=== PATIENT | female | born 1955 | race Caucasian/White ===

== ENCOUNTER 2023-03-29 12:41 | Outpatient (CLI) | payer MEDICARE, SELFPAY ==
--- NOTE | ~2023-03-29 | MR_ITS ---
EXAMINATION: MR knee LT wo con DATE: 03/29/2023 13:29 INDICATION: Unilateral primary osteoarthritis of the left knee TECHNIQUE: Magnetic resonance imaging (MRI) of the left knee was performed without intravenous contra st. Sequences included coronal PD-weighted FSE, coronal PD-weighted FS FSE, sagittal T2-weighted FSE , sagittal PD-weighted FS FSE and axial PD weighted fat saturated FSE. COMPARISON: None. FINDINGS: Medial compartment: There is increased intrasubstance signal at the posterior horn of the medial meniscus which does not unambiguously contact the articular surface to meet strict criteria for meniscal tear nor most likely related to mild mucoid degeneration. There is partial-thickness chondral ulceration with chondral oliavs rface regularity along the anterior to central weightbearing medial femoral condyle and along the med ial tibial plateau. At the former is most prominent at the lateral aspect of the central weightbearin g medial femoral condyle where it involves greater than 50% the cartilage thickness but without degen erative subchondral changes. There is underlying subarticular edema-like signal change along the medi al margin of the medial tibial plateau. Lateral compartment: Lateral meniscus is normal. Partial-thickness chondral fissuring without degenerative subchondral orquidea nges at the central aspect of the lateral tibial plateau. Patellofemoral compartment: Focal deep chondral ulceration involving greater than 50% the cartilage thickness at the central aspe ct of the medial trochlea. Additional chondral ulceration with underlying small central subchondral o steophyte along the inferior margin of the medial trochlea. Ligaments and tendons: Anterior and posterior cruciate ligaments are normal. The medial collateral ligament and fibular tonia ateral ligament complex are normal. Mild tendinopathy and small enthesophytes at the patellar inserti on of the distal quadriceps tendon. Small transverse bands of magic angle artifact extending across t he otherwise normal patellar tendon. The visualized medial and lateral hamstring tendons as well as t he iliotibial band are normal. Fluid: Small left knee joint effusion. Small to moderate-sized Mcwilliams's cyst. No loose osteochondral bodies i dentified. Osseous/other: Couple small low signal intensity bone islands at the posterior aspect of both medial and lateral fem oral condyles. No fracture or pathologic marrow replacing process. IMPRESSION: 1. 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 Small left knee joint effusion and small to moderate-sized Mcwilliams's cyst. Reviewed, dictated and finalized at location A. IMPRESSION: 1. Mild tricompartmental osteoarthritis with moderate and high-grade chondromal acia as detailed above 2. Small left knee joint effusion and small to moderate-sized Mcwilliams's cyst.
== END 2023-03-29 12:42 | disposition home or self-care (01) ==
PROVIDERS: PCP Family Medicine; Visit Provider Orthopaedic Surgery
DX: M17.12 Unilateral primary osteoarthritis, left knee (principal); M94.262 Chondromalacia, left knee; M25.462 Effusion, left knee; M71.22 Synovial cyst of popliteal space [Baker], left knee
CPT/HCPCS: 73721

== ENCOUNTER 2023-08-03 00:44 | Day surgery (SDC) | payer MEDICARE, SELFPAY ==
[2023-07-27 14:41] VITALS: BMI 29.7
--- NOTE | 2023-07-27 14:48 | PC.NURSE ---
Addendum entered by Jaz Jones RN 07/28/23 15:17: PT INSTRUCTED TO SKIP 08/02 DOSE OF SEMAGLUTIDE. Original Note: Report to the Outpatient Waiting Room, entrance under the green pavilion located off [facility], at time 1130 on date 08/03/23. Planned Procedure Time: 1330. Time changes happen often and if your time is changed the preop area will call you the afternoon before. - You and your visitor will be asked to self-screen and do not enter if you have any COVID symptoms. - A mask is optional within the hospital at this time. Patients may have clear liquids (water, carbonated beverages, clear teas, apple juice) until 3 hours prior to surgery with a maximum of 20 ounces. - No food from midnight until time of surgery Take the following medications with a SIP of water the morning of surgery: BUPROPION, XANAX IF NEEDED DO NOT STOP ANY OF YOUR OTHER PRESCRIPTION MEDICATIONS PRIOR TO SURGERY ?EXCEPT THE FOLLOWING Medications to discontinue per physician: VITAMINS/SUPPLEMENTS Date to take last dose: 07/30/23 Please no make-up, nail russian, hairspray, perfume, deodorant, or body powder the day of surgery. No jewelry (including any body piercings) or valuables the day of surgery, leave them at home. Please take a shower or bath the night before, or the morning of, surgery with an antibacterial soap. Wear comfortable, loose fitting clothing. - Jewelry must be removed prior to entering the operating room. Rings and piercings that are not removed may be cut off. - The hospital will not accept responsibility for valuables. - Please leave all valuables, including medications, at home the day of surgery. If you are going home after surgery, a licensed tow car driver must drive you home. - NO public transportation without another adult if you receive anesthesia. - We recommend that an adult stay with you for 24 hours following discharge. - We also recommend that you do not drive, make important decision, drink alcoholic beverages, or take any drugs that were not prescribed by your health care provider for at least 24 hours after your discharge time. Follow any additional instructions given to you from your surgeon. If you or anyone in your household have experienced Covid symptoms in the past week, please notify your surgeon or the nurse liaison at the phone number below for possible testing. Telephone instructions given to EKATERINA - RIGOBERTO MACARIO and asked if any additional questions and then verbalized understanding. Patient advised to call surgeon office or pre surgery nurse liaison [phone] if any additional questions.
[2023-08-03] VITALS (8 sets, daily range): BP systolic 129–162; BP diastolic 55–69; PULSE 76–96; RESP 12–16; TEMP 36.2–37.4; O2SAT 94–100
--- NOTE | 2023-08-03 09:34 | WPDHPUPDATE1 ---
History and Physical Update Update Date/Time: 08/03/23 09:34 History and Physical has been reviewed, including an updated exam of the patient. There are NO changes in the patient's condition. Risks, benefits, and alternatives have been discussed and questions answered. Patient agrees to proceed with procedure.
[2023-08-03 12:15] LABS: Hematocrit 37.1 % (37.0-47.0); Hemoglobin 12.4 g/dL (12.0-15.0)
[2023-08-03] MEDS: ACETAMINOPHEN 500 MG TABLET 1000 MG PO (12:30)
[2023-08-03] MEDS: KETOROLAC 15 MG/ML VIAL (*BKC) IV PUSH (12:51)
--- NOTE | 2023-08-03 13:01 | WPDANESEPPF ---
Anes - Initial Pre Proc Eval Procedure: Operation Date: 08/03/23 13:30 Proposed Procedures p Left Knee Arthroscopic Partial Medial Meniscectomy - Leo Arroyo MD Date/Time: 08/03/23 13:01 Surgeon: Leo Arroyo MD Pre Op Diagnosis: Lt Knee Medial Meniscus Tear Patient Data Age: 68 Gender: F Height: 1.68 m Weight: 83.7 kg Last Vital Signs Temp 37.4 C 08/03/23 12:54 Pulse 81 08/03/23 12:54 Resp 14 08/03/23 12:54 BP 162/62 H 08/03/23 12:54 Pulse Ox 100 08/03/23 12:54 O2 Del Method Room Air 08/03/23 12:54 Allergies Allergy/AdvReac Type Severity Reaction Status Date / Time codeine Allergy Unknown Chest Pain Verified 08/03/23 12:52 naproxen [From Aleve] AdvReac Nausea Verified 08/03/23 12:52 Home Medications Medication Instructions Recorded Confirmed Type bupropion HCl 150 mg 24 hr tablet, 150 mg PO QAM 01/07/23 08/03/23 History extended release (Wellbutrin XL) ferrous sulfate 325 mg (65 mg 325 mg PO DAILY 01/07/23 07/27/23 History iron) tablet (Feosol) hydrochlorothiazide 25 mg tablet 25 mg PO DAILY 01/07/23 07/27/23 History lansoprazole 30 mg capsule,delayed 30 mg PO DAILY 01/07/23 07/27/23 History release (Prevacid) simvastatin 20 mg tablet 20 mg PO DAILY 01/07/23 07/27/23 History biotin 1 mg capsule 500 mg PO DAILY 01/26/23 07/27/23 History cyclobenzaprine 5 mg tablet 5 mg PO TID PRN Muscle Spasm 01/26/23 07/27/23 History semaglutide 0.25 mg or 0.5 mg (2 0.5 mg subcut WEEKLY 01/26/23 07/27/23 History mg/3 mL) subcutaneous pen injector (Ozempic) alprazolam 0.5 mg tablet (Xanax) 0.5 mg PO DAILY PRN Anxiety 07/14/23 07/27/23 History ginkgo biloba 40 mg tablet 40 mg PO DAILY 07/27/23 07/27/23 History sucralfate 1 gram tablet 1 g PO DAILY 07/27/23 07/27/23 History hydrocodone 5 mg-acetaminophen 325 1 - 2 tablet PO Q4-6H PRN pain #30 08/03/23 Rx mg tablet tabs Laboratory Tests 08/03/23 12:01 Hgb 12.4 g/dL (12.0-15.0) Hct 37.1 % (37.0-47.0) Patient hx anesthesia problems: none Family hx anesthesia problems: none Results Review: All pre-operative results and documents have been reviewed as part of the pre-operative evaluation. PMF Past Medical History Medical History Endocrine disorder History of stress test Hyperlipemia Hypertension Surgical History Surgical History H/O cervical spine surgery c4,5,6 History of tooth extraction Family History Family History Mother COPD (chronic obstructive pulmonary disease) Emphysema lung Father Colon cancer Bladder cancer Diabetes mellitus Social History Social History Smoking status: Never smoker Alcohol intake: current Drinks per week: 1 Alcohol use details: RARE Substance use: never Substance use type: does not use Lack of Transportation: No Lack of Food: Never True Current Housing: I Have Housing Concerned About Future Housing: No Difficulty Paying Gas/Electric Bills: No Difficulty Paying for Meds: No Currently Unemployed: No Education: High School Diploma/GED Difficulty w/ Childcare or Family Care: No Living arrangements: with family Spiritual care concerns: No Anes - Eval Final PreProcedure Day of Procedure 08/03/23 13:01 Patient weight: overweight Heart: regular rate and rhythm Lungs: clear to auscultation Airway: Mallampati scale class II Neurological: alert and oriented Last oral intake: >/= 8 hours ASA classification: III Emergent: no Anesthetic plan: proceed Anesthesia type and monitoring: general LMA and standard monitoring Results Review: All pre-operative results and documents have been reviewed as part of the pre-operative evaluation. Informed Consent: The patient's anes
[2023-08-03] MEDS: ceFAZolin 2 GM/D5W 50 ML 2 GM/50 ML BAG IVPB (13:21)
[2023-08-03] MEDS: BUPIVACAINE/EPINEPHRINE 0.5% 10 ML VIAL 20 ML INFILTRATE (13:52)
[2023-08-03] MEDS: LACTATED RINGERS 1,000 ML 30 ML IV CONT ×2 (14:14)
--- NOTE | 2023-08-03 15:13 | P.OP_ITS ---
Procedure Note - Detailed Date of Procedure 08/03/23 Pre-op Diagnosis Lt Knee Medial Meniscus Tear Post-op Diagnosis Same Procedure Performed Arthroscopic partial medial meniscectomy, left knee. Surgeon Leo Arroyo MD Anesthesia General Findings Complex posterior horn medial meniscus tear. Small loose bodies under the meniscus with marked degeneration. Medial femur chondromalacia grade 3, medial tibia grade 2. Lateral femur chondromalacia grade 0, lateral tibia grade 1. Patellar grade 1, trochlea grade 2. Description of Procedure The patient was identified and the surgical site confirmed and signed in the preoperative holding area. Antibiotics were started per protocol. She was brought to the operative room and transferred to the OR table. A general anesthetic was administered. Supine position with the operative lower extremity position in the leg roman after placement of a well padded tourniquet. The leg support was lowered and the contralateral limb was supported with a soft bolster. The knee was prepped and draped in the usual sterile fashion. A time- out was performed. The portal sites were marked and infiltrated with 0.5% Marcaine 20 mL. The limb was exsanguinated and the tourniquet inflated to 300 mL Hg. Standard inferolateral and inferomedial portals were established. Inflow was obtained with the saline pump. The camera was introduced. Diagnostic inspection of the joint was accomplished. The meniscus was debrided with the arthroscopic shaver and punches until stable. The arthroscopic instruments were removed. The tourniquet released and wounds closed with subcutaneous 4-0 Monocryl absorbable suture. Steri strips and a st erile dressing were applied. A light elastic wrap was placed. The patient was extubated and brought to the recovery room in stable condition. Estimated Blood Loss 5 Drains No Complications No immediate complications Condition Stable Disposition PACU [facility] Billing Surgery - Charge Forward: Surgery Billing
[2023-08-03] MEDS: oxyCODONE HCL (*CRX) 5 MG TAB IR PO (15:39)
== END 2023-08-03 16:20 | disposition home or self-care (01) ==
PROVIDERS: Anesthesiology; PCP Family Medicine; Visit Provider Orthopaedic Surgery
PROC: (CPT 29870; principal; 2023-08-03 13:30)
DX: M23.322 Other meniscus derangements, posterior horn of medial meniscus, left knee (principal); M22.42 Chondromalacia patellae, left knee; I10 Essential (primary) hypertension; E78.00 Pure hypercholesterolemia, unspecified; E78.5 Hyperlipidemia, unspecified; E34.9 Endocrine disorder, unspecified; Z79.85 Long-term (current) use of injectable non-insulin antidiabetic drugs; Z79.891 Long term (current) use of opiate analgesic; Z80.0 Family history of malignant neoplasm of digestive organs; Z80.52 Family history of malignant neoplasm of bladder
CPT/HCPCS: 29881; 36415; 85014; 85018; A9270; J0690; J1100; J1885; J2250; J2405; J2704; J3010; J7120